=== PATIENT | male | born 1995 | race African-American/Black ===

== ENCOUNTER 2020-06-21 08:15 | Emergency (ER) | payer OTHER ==
[~2020-06-21] VITALS: Ht 167.6 cm; Wt 100.2 kg
[2020-06-21] MEDS ORDERED: DESC1TAB PO (08:24)
[2020-06-21] MEDS ORDERED: APPL300T4 PO (08:25)
--- NOTE | 2020-06-21 08:49 | REP ---
INDICATION: trauma from fall, great toe, 1st mt pain COMPARISON: None. TECHNIQUE: AP, lateral, bilateral oblique views left foot. FINDINGS: The osseous structures appear intact and no obvious acute fracture or dislocation is appreciated. However, a very subtle injury at the base of the 1st metatarsal bone cannot be excluded. Surrounding soft tissues are unremarkable. IMPRESSION: No definite acute fracture. As above. Consider immobilization and re-evaluation in 3-5 days if necessary.. <Electronically signed by Ronak Abbasi > 06/21/20 0831
[2020-06-21] MEDS ORDERED: INDO50CA91 PO (09:33)
[2020-06-21 09:45] VITALS: BP 141/93
== END 2020-06-21 09:49 | disposition home or self-care (01) ==
LOC: M ED 08:15
DX: S93.502A Unspecified sprain of left great toe, initial encounter (principal); V00.321A Fall from snow-skis, initial encounter; Y92.838 Other recreation area as the place of occurrence of the external cause; Y93.23 Activity, snow (alpine) (downhill) skiing, snowboarding, sledding, tobogganing and snow tubing; Y99.9 Unspecified external cause status

== ENCOUNTER 2020-07-08 19:16 | Emergency (ER) | payer OTHER ==
[~2020-07-08] VITALS: Ht 167.6 cm; Wt 89.5 kg
[~2020-07-08 19:16] MED LIST: APPL300T4 PO; DESC1TAB PO; INDO50CA91 PO
[2020-07-08] MEDS ORDERED: PRED20TA PO (20:27)
[2020-07-08] MEDS ORDERED: VALT1TAB PO (20:27)
[2020-07-08] MEDS ORDERED: valACYclovir HCL 500 MG TAB PO ONE (20:30)
[2020-07-08] MEDS ORDERED: predniSONE 20 MG TAB PO ONE (20:30)
--- OUTSIDE RECORDS SUMMARY | 2020-07-08 20:41 | CCD ---
Author Author [facility] Organization [facility] Address Unknown Phone Unavailable Care Team Providers Care Merchandise Worker Name Role Phone Maring, Julio Cesar PA Unavailable Unavailable Maring, Julio Cesar PA Unavailable Unavailable Maring, Julio Cesar PA Unavailable Unavailable Maring, Julio Cesar PA Unavailable Unavailable Maring, Julio Cesar PA Unavailable Unavailable Maring, Julio Cesar PA Unavailable Unavailable Maring, Julio Cesar PA Unavailable Unavailable Maring, Julio Cesar PA Unavailable Unavailable Maring, Julio Cesar PA Unavailable Unavailable Maring, Julio Cesar PA Unavailable Unavailable Maring, Julio Cesar PA Unavailable Unavailable Maring, Julio Cesar PA Unavailable Unavailable Maring, Julio Cesar PA Unavailable Unavailable Maring, Julio Cesar PA Unavailable Unavailable Re-disclosure Warning The records that you are about to access may contain information from federally-assisted alcohol or drug abuse programs. If such information is present, then the following federally mandated warning applies: This information has been disclosed to you from records protected by federal confidentiality rules (42 CFR part 2). The federal rules prohibit you from making any further disclosure of this information unless further disclosure is expressly permitted by the written consent of the person to whom it pertains or as otherwise permitted by 42 CFR part 2. A general authorization for the release of medical or other information is NOT sufficient for this purpose. The Federal rules restrict any use of the information to criminally investigate or prosecute any alcohol or drug abuse patient.The records that you are about to access may contain highly sensitive health information, the redisclosure of which is protected by Article 27-F of the [facility] Public Health law. If you continue you may have access to information: Regarding HIV / AIDS; Provided by facilities licensed or operated by the [facility] Office of Mental Health; or Provided by the [facility] Office for People With Developmental Disabilities. If such information is present, then the following [facility] mandated warning applies: This information has been disclosed to you from confidential records which are protected by state law. State law prohibits you from making any further disclosure of this information without the specific written consent of the person to whom it pertains, or as otherwise permitted by law. Any unauthorized further disclosure in violation of state law may result in a fine or group home sentence or both. A general authorization for the release of medical or other information is NOT sufficient authorization for further disc losure. Encounters Encounter Providers Location Date Indications Data Source(s ) O Attender: Julio Cesar CARTY 07/08/19 06:26:10 PM EST - 07/08/2020 07:07:33 PM EST Hank ([facility] ) Insurance Providers Payer name Policy type / Coverage type Policy ID Covered constitution party ID Covered constitution party's relationship to swann Policy Swann Plan Information [place] [id number] [facility] [id number]/ [id number] Spouse [id number] [place] [id number] [facility] [id number]
[2020-07-08 21:05] VITALS: BP 150/98
== END 2020-07-08 21:10 | disposition home or self-care (01) ==
LOC: M ED 19:16
DX: G51.0 Bell's palsy (principal)

== ENCOUNTER → 2021-03-06 | Outpatient (REF) | payer OTHER ==
[~2021-03-06] MED LIST changes: +PRED20TA PO; +VALT1TAB PO
== END ==
LOC: M LAB REF 15:42
PROVIDERS: ATTEND Physician Assistant
DX: J02.9 Acute pharyngitis, unspecified (principal)

== ENCOUNTER 2021-06-20 14:41 | Emergency (ER) | payer OTHER ==
[~2021-06-20] VITALS: Ht 167.6 cm; Wt 85.9 kg
[~2021-06-20 14:41] MED LIST changes: +RALTEGRAVIR 400 MG TAB (ISENTRESS) PO SCH; +TRUVADA 200MG/300MG TABLET PO SCH
[2021-06-20 17:14] LABS: BASO % 0.4 % (0.0-1.0); EOS # 0.1 10^3/uL (0.0-0.5); EOS % 1.6 % (0.0-3.0); HEMATOCRIT 49.4 % (42.0-52.0); LYMPH # 2.4 10^3/uL (1.5-5.0); LYMPH % 34.5 % (24.0-44.0); MEAN CORPUSCULAR HEMOGLOBIN 28.9 pg (27.0-33.0); MEAN CORPUSCULAR HGB CONC 32.4 g/dl (32.0-36.5); MEAN CORPUSCULAR VOLUME 89.2 fl (80.0-96.0); MONO # 0.6 10^3/uL (0.0-0.8); MONO % 8.1 % (2.0-8.0); NEUTROPHILS # 3.8 10^3/uL (1.5-8.5); NEUTROPHILS % 55.3 % (36.0-66.0); PLATELET COUNT, AUTOMATED 272 10^3/uL (150-450); RED BLOOD COUNT 5.54 10^6/uL (4.30-6.10); WHITE BLOOD COUNT 6.9 10^3/uL (4.0-10.0)
[2021-06-20 17:21] LABS: ALBUMIN 4.5 GM/DL (3.2-5.2); ALT/SGPT 60 U/L (12-78); BILIRUBIN,DIRECT 0.2 MG/DL (0.0-0.2); BILIRUBIN,TOTAL 0.9 MG/DL (0.2-1.0); BLOOD UREA NITROGEN 11 MG/DL (7-18); CALCIUM LEVEL 9.6 MG/DL (8.5-10.1); CARBON DIOXIDE LEVEL 27 MEQ/L (21-32); CHLORIDE LEVEL 104 MEQ/L (98-107); CREATININE FOR GFR 1.04 MG/DL (0.70-1.30); GLOMERULAR FILTRATION RATE > 60.0 (>60); GLUCOSE, FASTING 84 MG/DL (70-100); POTASSIUM SERUM 4.2 MEQ/L (3.5-5.1); SODIUM LEVEL 138 MEQ/L (136-145); TOTAL PROTEIN 7.8 GM/DL (6.4-8.2)
[2021-06-20] MEDS ORDERED: EXPOSURE KIT-ADULT 7 DAY SUPPLY PO ONE (17:35)
[2021-06-20] MEDS ORDERED: RALT40TA PO (17:39)
[2021-06-20] MEDS ORDERED: EMTR1TAB16 PO (17:39)
[2021-06-20] MEDS ORDERED: RALTEGRAVIR 400 MG TAB (ISENTRESS) PO ONE (17:50)
[2021-06-20] MEDS ORDERED: TRUVADA 200MG/300MG TABLET PO ONE (17:50)
[2021-06-20 17:51] LABS: HEPATITIS B SURFACE ANTIGEN NEGATIVE (NEGATIVE)
[2021-06-20 17:52] LABS: HEPATITIS B SURFACE ANTIBODY POSITIVE (POSITIVE)
[2021-06-20 18:08] LABS: HEPATITIS C VIRUS ABY INDEX < 0.0 INDEX (<0.8)
[2021-06-20 18:11] VITALS: BP 140/95
== END 2021-06-20 18:17 | disposition home or self-care (01) ==
LOC: M ED 14:41
DX: Z20.2 Contact with and (suspected) exposure to infections with a predominantly sexual mode of transmission (principal); Z77.21 Contact with and (suspected) exposure to potentially hazardous body fluids